=== PATIENT | male | born 1975 | race Caucasian/White ===

== ENCOUNTER 2018-01-27 20:25 | Emergency (ER) | payer SELFPAY ==
[~2018-01-27] VITALS: Ht 172.7 cm; Wt 72.7 kg
[2018-01-27] MEDS ORDERED: SULFAMETHOX/TRIMETH DS 800-160 MG/TABLET PO ONE (21:30)
[2018-01-27] MEDS ORDERED: LIDOCAINE/PF 1% 2 ML VIAL IM ONE (21:30)
[2018-01-27] MEDS ORDERED: CefTRIAXone SODIUM 1 GM/VIAL IM ONE (21:30)
[2018-01-27 22:23] VITALS: BP 128/68
== END 2018-01-27 22:32 | disposition home or self-care (01) ==
LOC: EMS 20:27
DX: L03.011 Cellulitis of right finger (principal); F15.90 Other stimulant use, unspecified, uncomplicated
CPT/HCPCS: 87070; 87077; 87186; 87205; 96372; 99284; J0696; J3490